=== PATIENT | female | born 1955 | race Caucasian/White ===

== ENCOUNTER → 2018-06-18 | Outpatient (CLI) | payer OTHER ==
[~2018-06-18] MED LIST: BLOOD PRESSURE MED; CALCAVITDA; CITA20 PO; DEPRESSION MED; ESTRTP PO; LEVSOD100 PO; LEVSOD75 PO; LISI20 PO
[2018-06-18 18:32] LABS: Appearance, Urine Hazy (Clear); Bilirubin, Urine Neg (Neg); Blood, Urine Neg (Neg); Color, Urine Yellow (P-Yellow); Glucose Qualitative, Urine Neg (Neg); Ketones, Urine Neg (Neg); Leukocyte Esterase, Urine Neg (Neg); Nitrite, Urine Neg (Neg); Protein, Urine Neg (Neg); Urobilinogen, Urine NORM (Normal)
[2018-06-18 18:52] LABS: Bacteria Mod /hpf; Red Blood Cells, Urine Not Seen /hpf (0-2); Squamous Epithelial Cells Mod /hpf (Few); White Blood Cells, Urine 0-2 /hpf (0-5)
== END | disposition home or self-care (01) ==
LOC: LAB 11:30 → LAB SHORT 11:30
PROVIDERS: Nurse Practitioner Primary Care
DX: E11.9 Type 2 diabetes mellitus without complications (principal)
CPT/HCPCS: 81001

== ENCOUNTER → 2022-03-24 | Outpatient (CLI) | payer OTHER | LOC: LAB SHORT 08:20 → PLD 08:20 | DX: D48.5 Neoplasm of uncertain behavior of skin (principal) | CPT/HCPCS: 88341; 88342 ==

== ENCOUNTER → 2023-09-02 | Outpatient (CLI) | payer OTHER | LOC: LAB 10:23 → LAB SHORT 10:23 | DX: N39.0 Urinary tract infection, site not specified (principal) | CPT/HCPCS: 87077; 87086; 87186 ==

== ENCOUNTER 2025-05-12 06:34 | Day surgery (SDC) | payer OTHER ==
[~2025-05-12] VITALS: Ht 152.4 cm; Wt 56.4 kg
[2025-05-12] VITALS (15 sets, daily range): BP systolic 98–158; BP diastolic 53–78
[~2025-05-12 06:34] MED LIST changes: +AMLO5 PO; +METF500 PO; +OMEP20ER PO; +estradiol
--- NOTE | 2025-05-12 07:09 | NUR ---
05/12/25 0709 Mary Ng CONFIRMED AND REVIEWED H&P, MEDCICATIONS, ALLERGIES, MEDICAL HISTORY, RESPIRATORY HISTORY, VITAL SIGNS, 3-LEAD EKG, CONSENTS, AND PHYSICIAN ORDERS. PATIENT CONFIRMS NPO STATUS AND AGREES WITH SCHEDULED PROCEDURE. MONITOR INTACT WITH CONTINUOUS PULSE OXIMETRY, CAPNOGRAPHY, 3-LEAD EKG, INTERMITTENT BP. SUPPLEMENTAL O2 TO BE TITRATED THROUGHOUT PROCEDURE TO MAINTAIN O2 SATURATION ABOVE 90%. PATIENT DETERMINED TO BE ASA APPROPRIATE FOR PROPOFOL SEDATION PRIOR TO START OF PROCEDURE BY DR. TREJO.
--- NOTE | 2025-05-12 07:20 | NUR ---
Ambulatory in Day Surgery WITH STEADY GAIT. History, Chart, Medications and Allergies reviewed before start of procedure. Pre-Op teaching done. Pt verbalizes understanding. Patient States Post-Procedure ride home has been arranged WITH [facility]. DR TREJO NOTIFIED OF PT'S BLOOD SUGAR LEVEL OF 58 THIS AM. PT REPORTS NO FEELINGS OF LIGHT HEADEDNESS OR DIZZINESS. NO NEW ORDERS GIVEN. ALL BELONGINGS PLACED IN PRE OP BAY.
--- NOTE | 2025-05-12 08:30 | NUR ---
DISCHARGE NOTE PT A&OX4, BREATHING RA, TOLERATING PO INTAKE, NO COMPLAINTS. CBG POST PROCEDURE 68- DR TREJO MADE AWARE, PT INSTRUCTED TO HAVE SOMETHING TO EAT AT HOME PER MD. PT ASYMPTOMATIC FOR HYPOGLYCEMIA. VSS. Patient up to Ambulate independently. Gait steady. Discharge instructions reviewed with patient. Patient verbalizes understanding. Copy given to patient to take home. Discharged via wheelchair to private car for ride home.
== END 2025-05-12 23:00 | disposition home or self-care (01) ==
LOC: ORSCMMR 06:34
PROVIDERS: Internal Medicine Gastroenterology
PROC: 0DJD8ZZ Inspection of Lower Intestinal Tract, Via Natural or Artificial Opening Endoscopic (ICD-10-PCS; principal; 2025-05-12 07:30)
DX: Z12.11 Encounter for screening for malignant neoplasm of colon (principal); K62.1 Rectal polyp; E11.9 Type 2 diabetes mellitus without complications; E03.9 Hypothyroidism, unspecified; I10 Essential (primary) hypertension; Z79.84 Long term (current) use of oral hypoglycemic drugs; Z79.899 Other long term (current) drug therapy
CPT/HCPCS: 82947; 88305; J2704; J7120